=== PATIENT | female | born 1990 | race Caucasian/White ===

== ENCOUNTER → 2016-10-22 | Outpatient (CLI) | payer BC ==
[~2016-10-22] MED LIST: BCPILLS PO; LRT5 PO
== END | disposition home or self-care (01) ==
LOC: C.PAPS 16:24
PROVIDERS: ATTEND Obstetrics & Gynecology
DX: Z01.419 Encounter for gynecological examination (general) (routine) without abnormal findings (principal)

== ENCOUNTER → 2017-04-20 | Outpatient (CLI) | payer BC ==
[2017-04-20 12:46] LABS: BASO % 0.1 %; BASO ABS # 0.01 K/uL (0-0.2); COMPLETE YES; EOS % 0.6 %; HEMATOCRIT 39.6 % (37-47); IG% 0.6 %; LYMPH % 15.6 %; LYMPH ABS # 1.65 K/uL (1.2-3.4); MEAN CELL VOLUME 91.9 fL (80-100); MEAN CORPUSCULAR HEMOGLOBIN 32.5 pg (25-34); MEAN CORPUSCULAR HGB CONC 35.4 g/dl (32-36); MEAN PLATELET VOLUME 10.8 fL (7.4-10.4); MONO % 6.2 %; NEUT % 76.9 %; PLATELET COUNT 171 K/uL (130-400); RED BLOOD COUNT 4.31 M/uL (4.2-5.4); WHITE BLOOD COUNT 10.59 K/uL (4.8-10.8)
[2017-04-20 14:11] LABS: URINE APPEARANCE CLEAR (CLEAR); URINE BILIRUBIN NEG (NEG); URINE COLOR YELLOW; URINE NITRITE NEG (NEG); URINE PH 7.5 (4.5-7.5); URINE SPECIFIC GRAVITY 1.007 (1.000-1.030); UROBILINOGEN NEG (NEG)
[2017-04-20 14:18] LABS: MANUAL MICROSCOPIC REQUIRED? NO; REVIEW REQ? NO
[2017-04-23 01:02] LABS: CHLAMYDIA TRACH RNA*** NOT DETECTED (NOT DETECTED); GC (NEIS GONORRHOEAE)RNA** NOT DETECTED (NOT DETECTED)
== END | disposition home or self-care (01) ==
LOC: C.LAB1850 11:18
PROVIDERS: ATTEND Obstetrics & Gynecology
DX: Z34.01 Encounter for supervision of normal first pregnancy, first trimester (principal)

== ENCOUNTER → 2017-05-27 | Outpatient (CLI) | payer BC ==
[2017-05-27 15:09] LABS: GTGD 50 Grams
[2017-06-01 15:59] LABS: AFP CONCENTRATION 25.4 NG/ML; AFPTS GESTATIONAL AGE 16.3 WEEKS; AFPTS INSULIN DEP DIABETIC? NO; AFPTS MATERNAL WT 164 LBS; ALPHA-FETOPROTEIN RACE CAUCASIAN=W; ESTRIOL MULTIPLE OF MEDIAN 0.79; HISTORY OF NTD NO; INHIBIN A 124 PG/ML; INHIBIN A MOM 0.77; REPEAT SAMPLE? NO; hCG MULTIPLE OF MEDIAN 1.28
== END | disposition home or self-care (01) ==
LOC: C.LAB1850 11:50
PROVIDERS: ATTEND Obstetrics & Gynecology
DX: Z34.02 Encounter for supervision of normal first pregnancy, second trimester (principal)

== ENCOUNTER → 2017-08-18 | Outpatient (CLI) | payer BC ==
[2017-08-18 11:59] LABS: GTGD 50 Grams
[2017-08-18 12:29] LABS: HEMATOCRIT 36.6 % (37-47)
== END | disposition home or self-care (01) ==
LOC: C.LAB1850 10:17
PROVIDERS: ATTEND Obstetrics & Gynecology
DX: Z34.03 Encounter for supervision of normal first pregnancy, third trimester (principal)

== ENCOUNTER → 2017-09-01 | Outpatient (CLI) | payer BC ==
[~2017-09-01] MED LIST changes: +PRENTAB26 PO
== END | disposition home or self-care (01) ==
LOC: C.LAB1850 07:50
PROVIDERS: ATTEND Obstetrics & Gynecology
DX: Z34.03 Encounter for supervision of normal first pregnancy, third trimester (principal); O99.810 Abnormal glucose complicating pregnancy

== ENCOUNTER 2017-09-09 10:24 | Emergency (ER) | payer BC ==
[~2017-09-09] VITALS: Ht 167.6 cm; Wt 83.0 kg
[~2017-09-09 10:24] MED LIST changes: -PRENTAB26 PO
[2017-09-09 10:29] VITALS: TEMP 36.5; Ht 167.6 cm; Wt 83.0 kg
[2017-09-09] MEDS ORDERED: SODIUM CHLORIDE 0.9% 1000ML 1,000 ML IV STA (10:39)
--- NOTE | 2017-09-09 10:49 | EMERGENCY ROOM VISIT NOTE ---
History Report prepared by Parisa: Mendoza Samaniego Under the Supervision of: Dr. Jayden Sargent M.D. First contact with patient: 10:32 Chief Complaint: DIZZY Stated Complaint: DIZZINESS,SYNCOPE Nursing Triage Summary: pt has been feeling dizzy and has passed out twice, last time was this am no complaints of pain History of Present Illness The patient is a 27 year old female who presents to the Emergency Room with complaints of 2 episodes of dizziness that began about 11 days ago. She is currently 31 weeks with her first child. She received confirmatory US procedures of the baby without complications or abnormalities. She denies any other known medical history and does not take medications aside from a vitamin. About a week and a half ago, the patient had an episode of dizziness and lightheadedness in the morning. She lost consciousness and did not hit her head or experience any weakness/numbness. She awoke feeling mildly short of breath. She then tried to eat breakfast and noted that her symptoms improved. Over that week, she was asymptomatic until this morning. She had a similar episode to that time without head trauma. The only difference between the two episodes is that today she is experiencing some chills. She denies any fevers, neck pain, chest pain, abdominal pain, back pain, abnormal vaginal bleeding, abnormal vaginal discharge, or leg swelling. 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 Source of History: patient Onset: 11 days ago Position: other (global) Symptom Intensity: 2 episodes Quality: other (Dizziness) Timing: intermittent Associated Symptoms: + LOC, + chills, No fevers, No headache, No neck pain, No chest pain, No SOB, No abdominal pain, No back pain, No weakness, No numbness Note: She denies any leg swelling, abnormal vaginal bleeding, or abnormal vaginal discharge. She was experiencing lightheadedness. Review of Systems See HPI for pertinent positives & negatives. A total of 10 systems reviewed and were otherwise negative. Family History Heart disease Hypertension Social History Smoking Status: Never Smoker Smokeless Tobacco Use: No Alcohol Use: none Drug Use: none Marital Status: Housing Status: lives with significant other Occupation Status: employed Current/Historical Medications Scheduled Multivit/Min/Iron/Fol Ac/Pren ( Vitamin), 1 TAB PO DAILY Allergies Coded Allergies: BEE STING (Unverified Allergy, Unknown, SWELLING, 09/09/17) Physical Exam Vital Signs Date Time Temp Pulse Resp B/P (MAP) Pulse Ox O2 Delivery O2 Flow Rate FiO2 09/09/17 13:52 82 16 110/69 99 Room Air 09/09/17 13:42 90 09/09/17 11:53 72 16 101/72 100 Room Air 09/09/17 11:49 98 16 98/70 98 Room Air 09/09/17 11:19 108 16 98/70 98 Room Air 103 109/78 113 114/70 09/09/17 11:18 98 Room Air 09/09/17 11:03 97 Room Air 09/09/17 11:02 102 09/09/17 10:29 36.5 101 18 108/75 99 Physical Exam GENERAL: Patient is a healthy-appearing well-nourished female HEAD: Normocephalic atraumatic EYES: Ocular movements intact pupils equal and react to light OROPHARYNX mucous membranes are moist no exudates present no erythema or edema present NECK: Supple no nuchal rigidity CHEST: Good equal expansion LUNGS: Clear and equal to auscultation CARDIAC: Normal S1 and S2 ABDOMEN: Soft nontender, gravid, no guarding BACK: No CVA tenderness EXTREMITIES: No pain upon palpation normal muscle strength in all groups no clubbing cyanosis or edema NEURO: Patient is following commands and answering questions appropriately. Alert and oriented x3 Cranial Nerves 2-12 grossly intact Medical Decision & Procedures ER Provider Diagnostic Interpretation: Radiology results as stated below per my review and radiologist interpretation: LIMITED (US) CLINICAL HISTORY: Pt c/o dizziness COMPARISON STUDY: Outside hospital ultrasound 07/28/2017. FINDINGS: A anatomic survey was not performed for this study. Transabdominal scanning of the fetus. heart rate was between 133 and 144 bpm. The cervix is not clearly identified due to the artifact from the head. The fetus is in a cephalic presentation. There is an anterior/fundal placenta. No evidence for subchorionic hematoma. Amniotic fluid index is 15.5 cm. Femur length is 5.9 cm consistent with a 31 week and 0 day intrauterine gestation. IMPRESSION: 1. A single viable 31 week and 0 day intrauterine gestation. 2. Normal amniotic fluid index. 3. Anterior/fundal placenta. No evidence for subchorionic hematoma. 4. The cervix was not well visualized due to artifact from the head. Electronically signed by: Cipriano Lockwood M.D. 09/09/2017 1:14 PM Dictated Date/Time: 09/09/2017 1:10 PM Laboratory Results 09/09/17 11:10 Red Blood Count 3.83, Mean Corpuscular Volume 95.0, Mean Corpuscular Hemoglobin 32.6, Mean Corpuscular Hemoglobin Concent 34.3, Mean Platelet Volume 10.5, Neutrophils (%) (Auto) 85.8, Lymphocytes (%) (Auto) 7.2, Monocytes (%) (Auto) 5.3, Eosinophils (%) (Auto) 0.4, Basophils (%) (Auto) 0.1, Neutrophils # (Auto) 11.41, Lymphocytes # (Auto) 0.95, Monocytes # (Auto) 0.70, Eosinophils # (Auto) 0.05, Basophils # (Auto) 0.01 09/09/17 11:10 Test 09/09/17 11:10 09/09/17 11:26 09/09/17 12:30 White Blood Count 13.28 K/uL (4.8-10.8) Red Blood Count 3.83 M/uL (4.2-5.4) Hemoglobin 12.5 g/dL (12.0-16.0) Hematocrit 36.4 % (37-47) Mean Corpuscular Volume 95.0 fL (80-100) Mean Corpuscular Hemoglobin 32.6 pg (25-34) Mean Corpuscular Hemoglobin Concent 34.3 g/dl (32-36) Platelet Count 177 K/uL (130-400) Mean Platelet Volume 10.5 fL (7.4-10.4) Neutrophils (%) (Auto) 85.8 % Lymphocytes (%) (Auto) 7.2 % Monocytes (%) (Auto) 5.3 % Eosinophils (%) (Auto) 0.4 % Basophils (%) (Auto) 0.1 % Neutrophils # (Auto) 11.41 K/uL (1.4-6.5) Lymphocytes # (Auto) 0.95 K/uL (1.2-3.4) Monocytes # (Auto) 0.70 K/uL (0.11-0.59) Eosinophils # (Auto) 0.05 K/uL (0-0.5) Basophils # (Auto) 0.01 K/uL (0-0.2) RDW Standard Deviation 44.2 fL (36.4-46.3) RDW Coefficient of Variation 12.8 % (11.5-14.5) Immature Granulocyte % (Auto) 1.2 % Immature Granulocyte # (Auto) 0.16 K/uL (0.00-0.02) Anion Gap 8.0 mmol/L (3-11) Est Creatinine Clear Calc Drug Dose 163.8 ml/min Estimated GFR () 146.9 Estimated GFR (Non- 126.8 BUN/Creatinine Ratio 15.0 (10-20) Calcium Level 8.1 mg/dl (8.5-10.1) Total Bilirubin 0.2 mg/dl (0.2-1) Direct Bilirubin < 0.1 mg/dl (0-0.2) Aspartate Amino Transf (AST/SGOT) 14 U/L (15-37) Alanine Aminotransferase (ALT/SGPT) 16 U/L (12-78) Alkaline Phosphatase 102 U/L (45-117) Total Creatine Kinase 67 U/L (26-192) Creatine Kinase MB 0.9 ng/ml (0.5-3.6) Creatine Kinase MB Ratio 1.3 (0-3.0) Troponin I < 0.015 ng/ml (0-0.045) Total Protein 6.6 gm/dl (6.4-8.2) Albumin 2.6 gm/dl (3.4-5.0) Thyroid Stimulating Hormone (TSH) 1.710 uIu/ml (0.300-4.500) Bedside Glucose 101 mg/dl (70-90) Urine Color YELLOW Urine Appearance CLEAR (CLEAR) Urine pH 7.0 (4.5-7.5) Urine Specific [place] 1.015 (1.000-1.030) Urine Protein NEG (NEG) Urine Glucose (UA) NEG (NEG) Urine Ketones NEG (NEG) Urine Occult Blood NEG (NEG) Urine Nitrite NEG (NEG) Urine Bilirubin NEG (NEG) Urine Urobilinogen NEG (NEG) Urine Leukocyte Esterase SMALL (NEG) Urine WBC (Auto) 1-5 /hpf (0-5) Urine RBC (Auto) 0-4 /hpf (0-4) Urine Hyaline Casts (Auto) 1-5 /lpf (0-5) Urine Epithelial Cells (Auto) >30 /lpf (0-5) Urine Bacteria (Auto) NEG (NEG) Urine Renal Epithelial Cells /lpf (0-5) Labs reviewed by ED physician. Medications Administered Medications (Trade) Dose Ordered Sig/Ezra Route Start Time Stop Time Status Last Admin Dose Admin Sodium Chloride 1,000 ml @ 999 mls/hr Q1H1M STAT IV 09/09/17 10:39 09/09/17 11:39 DC 09/09/17 10:39 999 MLS/HR ECG Indication: syncope Rate (beats per minute): 97 Rhythm: normal sinus Findings: no acute ischemic change, no ectopy ED Course 1032: Past medical records reviewed. The patient was evaluated in room B2. A complete history and physical examination was performed. 1039: Ordered Sodium Chloride 1000 ml @ 999 mls/hr IV 1426: Upon reexamination the patient is resting. I discussed results and treatment plan with the patient. She verbalizes agreement and understanding. The patient is ready for discharge. Medical Decision Differential diagnosis: Etiologies such as vasovagal event, infection, hypoglycemia, electrolyte abnormalities, cardiac sources, intracerebral event, toxicologic, neurologic, as well as others were entertained. This is a 27 year old female who presents emergency department complaining of dizziness. Every time the patient stands up she feels she is dizzy. She is hypotensive upon arrival to the emergency department however does not appear to be septic. In addition the patient is afebrile. An IV was established, patient was given normal saline bolus. Repeat examination revealed improvement patient's symptoms. I strongly recommended that the patient return to the emergency department if she develops chest pain or shortness of breath however at this point the patient would like to be discharged. I encouraged her to increase her fluid intake over the next 48 hours. Patient was in agreement with the treatment plan. Medication Reconcilliation Current Medication List: was personally reviewed by me Blood Pressure Screening Patient's blood pressure: Normal blood pressure Blood pressure disposition: Did not require urgent referral Impression Primary Impression: Additional Impression: Dehydration Scribe Attestation The scribe's documentation has been prepared under my direction and personally reviewed by me in its entirety. I confirm that the note above accurately reflects all work, treatment, procedures, and medical decision making performed by me. Departure Information Dispostion Home / Self-Care Referrals No Doctor, Assigned (PCP) Forms HOME CARE DOCUMENTATION FORM, IMPORTANT VISIT INFORMATION, School Instructions, Work Instructions Patient Instructions ED Dehydration, My [facility] Additional Instructions Increase fluid intake next 48 hours You have been examined and treated today on an emergency basis only. This is not a substitute for, or an effort to provide, complete comprehensive medical care. It is impossible to recognize and treat all injuries or illnesses in a single emergency department visit. It is therefore important that you follow up closely with your PCP. Call as soon as possible for an appointment. Thank you for your time and consideration. I look forward to speaking with you again soon. Please don't hesitate to call us if you have any questions. Problem Qualifiers Primary Impression: Weeks of gestation: 31 weeks Qualified Codes: Z3A.31 - 31 weeks gestation of
[2017-09-09 11:18] VITALS: O2SAT 98
[2017-09-09] MEDS ORDERED: PRENTAB26 PO (11:20)
[2017-09-09 11:27] LABS: BASO % 0.1 %; BASO ABS # 0.01 K/uL (0-0.2); EOS % 0.4 %; EOS ABS # 0.05 K/uL (0-0.5); HEMATOCRIT 36.4 % (37-47); HEMOGLOBIN 12.5 g/dL (12.0-16.0); IG# 0.16 K/uL (0.00-0.02); LYMPH % 7.2 %; LYMPH ABS # 0.95 K/uL (1.2-3.4); MEAN CORPUSCULAR HEMOGLOBIN 32.6 pg (25-34); MEAN CORPUSCULAR HGB CONC 34.3 g/dl (32-36); MEAN PLATELET VOLUME 10.5 fL (7.4-10.4); MONO % 5.3 %; NEUT % 85.8 %; NEUT ABS # 11.41 K/uL (1.4-6.5); PLATELET COUNT 177 K/uL (130-400); RED CELL DISTRIBUTION WIDTH CV 12.8 % (11.5-14.5); RED CELL DISTRIBUTION WIDTH SD 44.2 fL (36.4-46.3); WHITE BLOOD COUNT 13.28 K/uL (4.8-10.8)
[2017-09-09 11:39] LABS: ALBUMIN 2.6 gm/dl (3.4-5.0); ALT/SGPT 16 U/L (12-78); BLOOD UREA NITROGEN 8 mg/dl (7-18); CALCIUM 8.1 mg/dl (8.5-10.1); CARBON DIOXIDE 24 mmol/L (21-32); CREATININE 0.55 mg/dl (0.60-1.20); GLUCOSE 95 mg/dl (70-99); POTASSIUM 3.7 mmol/L (3.5-5.1); SODIUM 136 mmol/L (136-145)
[2017-09-09 11:50] LABS: ALKALINE PHOSPHATASE 102 U/L (45-117); AST/SGOT 14 U/L (15-37); CKMB 0.9 ng/ml (0.5-3.6); TOTAL PROTEIN 6.6 gm/dl (6.4-8.2)
--- NOTE | 2017-09-09 13:16 | DIAGNOSTIC IMAGING REPORT ---
LIMITED (US) CLINICAL HISTORY: Pt c/o dizziness COMPARISON STUDY: Outside hospital ultrasound 07/28/2017. FINDINGS: A anatomic survey was not performed for this study. Transabdominal scanning of the fetus. heart rate was between 133 and 144 bpm. The cervix is not clearly identified due to the artifact from the head. The fetus is in a cephalic presentation. There is an anterior/fundal placenta. No evidence for subchorionic hematoma. Amniotic fluid index is 15.5 cm. Femur length is 5.9 cm consistent with a 31 week and 0 day intrauterine gestation. IMPRESSION: 1. A single viable 31 week and 0 day intrauterine gestation. 2. Normal amniotic fluid index. 3. Anterior/fundal placenta. No evidence for subchorionic hematoma. 4. The cervix was not well visualized due to artifact from the head. Electronically signed by: Cipriano Lockwood M.D. 09/09/2017 1:14 PM Dictated Date/Time: 09/09/2017 1:10 PM
[2017-09-09 13:52] VITALS: BP 110/69; PULSE 82; O2SAT 99
== END 2017-09-09 14:20 | disposition home or self-care (01) ==
LOC: C.EDB 10:27
DX: O99.283 Endocrine, nutritional and metabolic diseases complicating pregnancy, third trimester (principal); O10.913 Unspecified pre-existing hypertension complicating pregnancy, third trimester; Z3A.31 31 weeks gestation of pregnancy; R03.1 Nonspecific low blood-pressure reading

== ENCOUNTER → 2017-10-14 | Outpatient (CLI) | payer BC ==
[~2017-10-14] MED LIST changes: -BCPILLS PO; -LRT5 PO; +PRENTAB26 PO
== END ==
LOC: C.LABSPEC 13:05
PROVIDERS: ATTEND Obstetrics & Gynecology
DX: Z34.03 Encounter for supervision of normal first pregnancy, third trimester (principal)

== ENCOUNTER 2017-11-10 04:07 | Inpatient (IN) | payer BC ==
[~2017-11-10] VITALS: Ht 167.6 cm; Wt 90.0 kg
[2017-11-10 04:36] VITALS: Ht 167.6 cm; Wt 90.0 kg
[2017-11-10] MEDS ORDERED: LACTATED RINGER'S 1000ML 1,000 ML IV PRN (05:13)
[2017-11-10] MEDS ORDERED: LACTATED RINGER'S 1000ML 1,000 ML IV SCH ×2 (05:13→12:25)
[2017-11-10 05:52] LABS: HEMATOCRIT 36.6 % (37-47); MEAN CELL VOLUME 95.3 fL (80-100); MEAN CORPUSCULAR HEMOGLOBIN 33.9 pg (25-34); MEAN CORPUSCULAR HGB CONC 35.5 g/dl (32-36); MEAN PLATELET VOLUME 12.2 fL (7.4-10.4); PLATELET COUNT 148 K/uL (130-400); RED CELL DISTRIBUTION WIDTH CV 13.2 % (11.5-14.5); RED CELL DISTRIBUTION WIDTH SD 45.5 fL (36.4-46.3)
[2017-11-10] MEDS ORDERED: BUPIVACAINE 0.25% 30 ML VIAL ONE (07:03)
[2017-11-10] MEDS ORDERED: EpHEDrine SULFATE INJ 50 MG/ML AMP ONE (07:03)
[2017-11-10] MEDS ORDERED: FENTANYL CITRATE INJ 50 MCG/1 ML 2 ML VIAL ONE (07:03)
[2017-11-10] MEDS ORDERED: FENTANYL 2MCG/ML ROPIV 1.25MG/ML 100ML BAG EPI ONE (07:04)
[2017-11-10] MEDS ORDERED: NALOXONE HCL INJ 1 MG in SODIUM CHLORIDE 0.9% 1000ML 1,000 ML IV PRN (08:08)
[2017-11-10] MEDS ORDERED: LACTATED RINGER'S 1000ML 500 ML IV PRN ×2 (08:08→08:49)
[2017-11-10] MEDS ORDERED: FENTANYL 2MCG/ML ROPIV 1.25MG/ML 100ML BAG EPI PRN (08:15)
[2017-11-10] MEDS ORDERED: ONDANSETRON INJ 2 MG/ML 2 ML VIAL IV PRN (08:15)
[2017-11-10] MEDS ORDERED: EpHEDrine SULFATE INJ 50 MG/ML AMP IV PRN (08:15)
[2017-11-10] MEDS ORDERED: DiphenhydrAMINE HCL 50 MG/ML VIAL IV PRN (08:15)
[2017-11-10] MEDS ORDERED: NALBUPHINE HCL INJ 10 MG/ML AMP IV PRN (08:15)
[2017-11-10] MEDS ORDERED: NALOXONE HCL INJ 0.4 MG/1 ML VIAL/CARP IV PRN (08:15)
[2017-11-10] MEDS ORDERED: OXYTOCIN 30 UNITS/500ML NSS IV PRN ×2 (09:00→12:30)
[2017-11-10] MEDS ORDERED: HYDROCORTISONE ACETATE 25 MG SUPP PR PRN (12:30)
[2017-11-10] MEDS ORDERED: SUPERCREAM 0.870 % 15GM JAR EXT PRN (12:30)
[2017-11-10] MEDS ORDERED: BENZOCAINE 20% AER SPR 82.5 GM CAN EXT PRN (12:30)
[2017-11-10] MEDS ORDERED: OXYCODONE/ACETAMINOPHEN 5-325 TAB PO PRN (12:30)
[2017-11-10] MEDS ORDERED: DIPHTHERIA/TETANUS/PERTUSSIS 0.5 ML SYR/VIAL IM. ONE (12:30)
[2017-11-10] MEDS ORDERED: ACETAMINOPHEN 325 MG TAB PO PRN (12:30)
[2017-11-10] MEDS ORDERED: LANOLIN OINT EXT PRN (12:30)
--- NOTE | 2017-11-10 12:33 | Vaginal Delivery Summary ---
Vaginal Delivery Summary Preoperative Diagnoses: Stein intrauterine at 40 and 1 1 para 0 Group B strep negative Spontaneous rupture of membranes Postoperative Diagnoses: Stein intrauterine at 40 and 1 1 para 0 Group B strep negative Spontaneous rupture of membranes Procedure: Spontaneous vaginal delivery and repair of posterior vaginal laceration Surgeon: Shamar Assist: None Estimated Blood Loss: 350 Complications: None Disposition: Stable in labor and delivery Sierra Hanson is a 27-year-old who presented at 40 weeks gestational age with spontaneous rupture of membranes. She was admitted by my partner Dr. Angel and initially managed expectantly. She was provided with an epidural for pain management at the time I assumed care of the patient. She was reassessed and found to be unchanged, therefore Pitocin was started for augmentation with permission of the patient and her partner. Patient then progressed to complete dilation and was allowed to labor down until she felt the urge to push. I was called to the bedside as the patient began pushing. She was prepped for delivery and with her first few pushes was able to bring the head to ; she then delivered the head of the in the SHELIA position. A loose body cord was noted and the was delivered through this with the next push. Vigorous male was placed on the maternal abdomen where the cord was doubly clamped and cut by the father. The placenta was delivered spontaneously and noted to be intact with a three-vessel cord. A posterior vaginal repair then proceeded of a shallow laceration using 2-0 Vicryl suture in a running locked manner. There were no disruptions of the perineal or labial skin. Digital examination revealed no connections between the vaginal and rectal canals. At the completion of delivery, the fundus was firm lochia was minimal and mother and infant were both in stable condition.
--- NOTE | 2017-11-10 12:53 | Anesthesia Procedure Note ---
Anesthesia Epidural Removal Nt Date & Time Nov 10, 2017 at 12:52 Vital Signs Pain Intensity: 0.0 Notes Mental Status: alert / awake / arousable, participated in evaluation Nausea / Vomiting: adequately controlled Pain: adequately controlled Airway Patency, RR, SpO2: stable & adequate BP & HR: stable & adequate Hydration State: stable & adequate Neuraxial Anesthesia: was administered, sensory block is resolving Anesthetic Complications: no major complications apparent, pt satisfied with anesthetic care Epidural: removed without complications, with tip intact
[2017-11-10 16:30] VITALS: BP 106/71; PULSE 66; TEMP 37.3
[2017-11-10] MEDS: IBUPROFEN 600 MG TAB PO PRN ×2 (17:20→21:21)
[2017-11-10 19:30] VITALS: BP 109/75; PULSE 65; TEMP 37.1
[2017-11-10] MEDS: DOCUSATE SODIUM 100 MG CAP PO SCH (20:04)
[2017-11-11 00:30] VITALS: BP 96/65; PULSE 68; TEMP 37
[2017-11-11] MEDS: IBUPROFEN 600 MG TAB PO PRN ×4 (02:01→17:12)
[2017-11-11 04:45] VITALS: BP 91/62; PULSE 63; TEMP 36.9
[2017-11-11 06:33] LABS: HEMATOCRIT 31.6 % (37-47); HEMOGLOBIN 10.9 g/dL (12.0-16.0)
--- NOTE | 2017-11-11 06:58 | Progress Note ---
Subjective Nov 11, 2017. Subjective conversation w/ patient, physical exam Ambulation: ambulating normally Voiding: no voiding problems Passing Gas: Yes Diet Tolerance: Regular Diet Lochia: Moderate Feeding Type: Breast Feeding Pain: minimal, well controlled Comment: Pt seen and assessed at bedside this morning; no acute events overnight Review of Systems Constitutional: No fever, No chills Respiratory: No cough, No shortness of breath Cardiac: No chest pain, No edema Abdomen: No pain, No nausea, No vomiting Female : No dysuria no headaches or calf tenderness reported Objective Vital Signs Date Time Temp Pulse Resp B/P (MAP) Pulse Ox O2 Delivery O2 Flow Rate FiO2 11/11/17 04:45 36.9 63 16 91/62 (72) Room Air 11/11/17 00:30 37.0 68 18 96/65 (75) Room Air 11/11/17 00:30 Room Air 11/10/17 19:30 37.1 65 20 109/75 (86) Room Air 11/10/17 16:30 Room Air 11/10/17 16:30 37.3 66 20 106/71 (83) Room Air Physical Exam General Appearance: WELL-APPEARING, WD/WN, NO APPARENT DISTRESS Respiratory/Chest: chest non-tender, lungs clear, normal breath sounds Cardiovascular: regular rate, rhythm, no edema, no murmur Abdomen: normal bowel sounds, non tender, soft Fundus: Firm, Non-Tender, Relation to Umbilicus (1-2 cm below) Extremities: normal range of motion, non-tender, normal inspection, no pedal edema, no calf tenderness Laboratory Results Last 24 Hours Test 11/11/17 06:13 Hemoglobin 10.9 g/dL Hematocrit 31.6 % Medications Current Inpatient Medications Medications (Trade) Dose Ordered Sig/Ezra Route Start Time Stop Time Status Last Admin Dose Admin Lactated Ringer's 1,000 ml @ 125 mls/hr Q8H IV 11/10/17 05:13 11/12/17 05:12 11/10/17 08:02 125 MLS/HR Lactated Ringer's 1,000 ml @ 999 mls/hr Q1H1M PRN IV 11/10/17 05:13 12/10/17 05:12 11/10/17 07:09 999 MLS/HR Fentanyl/ Ropivacaine (Fentanyl 2MCG/ Ml/Ropivacaine 1.25MG/ML) 100 ml PRN PRN EPI 11/10/17 08:15 11/11/17 08:14 Naloxone HCl (Narcan Inj) 0.1 mg UD PRN IV 11/10/17 08:15 11/11/17 08:14 Lactated Ringer's 500 ml @ 999 mls/hr Q31M PRN IV 11/10/17 08:08 11/11/17 08:07 Ephedrine Sulfate (EpHEDrine SULFATE INJ) 10 mg Q5M PRN IV 11/10/17 08:15 11/11/17 08:14 Diphenhydramine HCl (Benadryl Inj) 25 mg Q6H PRN IV 11/10/17 08:15 11/11/17 08:14 Nalbuphine HCl (Nubain Inj) 5 mg Q10M PRN IV 11/10/17 08:15 11/11/17 08:14 Naloxone HCl 1 mg/ Sodium Chloride 1,002.5 ml @ 50 mls/hr Q20H3M PRN IV 11/10/17 08:08 11/11/17 08:07 Ondansetron HCl (Zofran Inj) 4 mg Q6H PRN IV 11/10/17 08:15 11/11/17 08:14 Oxytocin (Pitocin IV) 30 units UD PRN IV 11/10/17 09:00 12/10/17 08:59 11/10/17 09:12 30 UNITS Lactated Ringer's 500 ml @ 999 mls/hr Q31M PRN IV 11/10/17 08:49 12/10/17 08:48 Lactated Ringer's 1,000 ml @ 125 mls/hr Q8H IV 11/10/17 12:25 12/10/17 12:24 Oxytocin (Pitocin IV) 30 units UD PRN IV 11/10/17 12:30 12/10/17 12:29 Benzocaine (Dermoplast Aero Spr) 1 appln PRN PRN EXT 11/10/17 12:30 12/10/17 12:29 11/10/17 17:20 82.5 APPLN Cocaine HCl (Supercream 0.870% Cr) BID PRN EXT 11/10/17 12:30 11/24/17 12:29 11/10/17 17:20 15 GM Hydrocortisone Acetate (Anusol Hc Supp) 25 mg BID PRN IN 11/10/17 12:30 12/10/17 12:29 Lanolin (Lanolin Oint) PRN PRN EXT 11/10/17 12:30 12/10/17 12:29 Prenat Multivit/ Registration Coordinator/Iron/Folic Ac ( Vitamin Tab) 1 tab DAILY PO 11/11/17 08:00 12/11/17 07:59 Ibuprofen (Motrin Tab) 600 mg Q4H PRN PO 11/10/17 12:30 12/10/17 12:29 11/11/17 02:01 600 MG Acetaminophen (Tylenol Tab) 650 mg Q6H PRN PO 11/10/17 12:30 12/10/17 12:29 Oxycodone/ Acetaminophen (Percocet 5-325mg Tab) 1 tab Q4H PRN PO 11/10/17 12:30 11/24/17 12:29 Docusate Sodium (coLACE CAP) 100 mg BID PO 11/10/17 20:00 12/10/17 19:59 11/10/17 20:04 100 MG Assessment and Plan Problem List Medical Problems: (1) Dehydration Status: Acute Post- Day#: 1 Continue Routine Care: 27 yo F , PPD 1 s/p pt doing well clinically continue routine care encourage ambulation, breast feeding/first mom education on breast feeding, pain control with rx prn Resident Tracking Resident Involvement: Resident Care Provided Care Provided: OB Delivery
--- NOTE | 2017-11-11 07:26 | Discharge Instructions ---
Discharge Instructions Date of Service Nov 11, 2017. Admission Reason for Admission: LABOR Discharge Discharge Diagnosis / Problem: s/p Discharge Goals Goal(s): Routine recovery after delivery Medications Continue Dispensed Medications: supercream, dermaplast, tucks, inhaler, lansinoh Activity Recommendations Activity Limitations: per Instructions/Follow-up section . Instructions / Follow-Up Instructions / Follow-Up ACTIVITY RECOMMENDATIONS: * Gradual return to full activity over the next 2-3 weeks. * No lifting - nothing heavier than baby over the next 2-3 weeks. * Do not engage in vigorous exercise, sexual activity or sports until cleared by your physician. * Do not drive or operate any motorized equipment until cleared by your physician. * You may shower/bathe daily. MEDICATIONS: For discomfort or pain, you may use Acetaminophen (Tylenol), Ibuprofen (Advil), or Naproxen (Aleve) following the package directions. For constipation you may use Colace following the package directions. BREAST CARE: If you are not breast feeding: * Wear a supportive bra 24 hours a day for one to two weeks. * Avoid stimulating your breasts and nipples as much as possible during the first few weeks after delivery. * When taking a shower, have the warm water hit your back, not breasts. * When your breasts feel full, apply ice packs. Usually three to four times a day helps ease the discomfort. * Take a mild pain medication (Tylenol / Motrin) when you are uncomfortable. If breast feeding: * Use breast milk to lubricate nipples. Lansinoh cream may be used for sore nipples. You do not need to remove cream prior to breast feeding. If using a different brand of cream, check the label for directions regarding removal of cream prior to nursing. * Wear a supportive bra. * If having problems with breasts or breast feeding, call a clinical practice consultant or your health care provider. EPISIOTOMY CARE: After delivery, if you have an episiotomy (stitches), the following steps will ease discomfort and aid healing. * For the first 24 hours after delivery, place ice packs next to your episiotomy to help reduce swelling. * After the first 24 hour-period, sitz baths, either portable or in the tub, are suggested. A shower with a shower arm sprayed over the episiotomy may be comforting. * Millie care should be done after each voiding and bowel movement. Squirt warm water from a plastic bottle over the perineum (region of the body between the anus and urinary opening) and pat dry. * Use Dermoplast to ease discomfort. Shake container. [place] directly over the episiotomy. Place a Tucks on a clean sanitary pad next to your episiotomy. SPECIAL CARE INSTRUCTIONS: When you are discharged from the hospital, it is important for you to follow the instructions listed below: * During the first week at home, you should be able to care for yourself and your baby. In addition, the usual light household activities are encouraged. * Limit your activities to the way you feel. Do not try to clean the house or move furniture. Be sensible. * If you actively engage in sports and have done so up until the time of your delivery, you may resume these activities as soon as you feel able. This may take up to one month or even longer. Use good judgment. * Continue to take your vitamins for at least six weeks after the of your baby. * Your diet need not be limited unless you were on a special diet before your delivery. Breast-feeding mothers need around 2500 calories per day and at least 64-80 ounces of fluid per day (8 to 10 glasses). * You should eat foods from the four major food groups. Crash diets or fad diets are to be avoided. Eating lean meats, fresh fruits and vegetables, low-fat dairy products, high fiber foods and a regular exercise program, will help you get back to your pre- weight without putting your health at risk. * Constipation is sometimes a problem after delivery. Take a mild laxative as needed. If breast feeding, Milk of Magnesia is acceptable to use. You may use a suppository or Fleets enema if no episiotomy. * A daily shower or tub bath is suggested. Be sure to thoroughly and gently dry the perineum. * A bloody vaginal discharge will usually continue until around four weeks post . A small amount of bleeding may continue for as long as six weeks. Vaginal discharge changes from the bright red bleeding after delivery to pink then brownish and finally yellowish-pink before becoming white and disappearing. * Bleeding may increase with activity. Your first period may come in 4-8 weeks. If you are breast feeding, your period may be delayed even longer. * [place] (sex) can begin whenever both you and your partner feel comfortable and do not have any form of genital infection. It is recommended that you wait at least six weeks for internal and external healing to occur. If you have questions, please talk to your health care practitioner. A condom should be used to prevent infection and . * Foreplay, gentle intercourse and lubrication is very important the first several times to prevent pain. A water-based lubricant such as K-Y jelly or Astroglide may be used. * If you have RH negative blood and your baby is RH positive, you will receive RHOGAM by injection prior to discharge. The nurse will give you a card to keep with you that has the date and place that you received RHOGAM after delivery. * During your care, you had a Rubella screen done to check for the presence of rubella antibodies in your blood. If your test was negative, you will receive a Rubella vaccine prior to discharge. This vaccine may cause a fever, soreness at the injection site and flu-like symptoms. If these symptoms persist, notify your health care practitioner. is not advised for one month after a Rubella vaccine. * Verbalizes understanding of car seat law as reviewed with patient nursing. * Car Seat hand-out given and reviewed with patient by nursing. * Shaken baby information reviewed with patient by nursing. Call you doctor if: * Heavy bleeding (saturating several pads an hour) or passing clots the size of your fist. * A fever >101 degrees F (38.3 degrees C) on two occasions four hours apart and /or chills. * Unusual pain in the pelvic or vaginal areas. * "Baby Blues" lasting longer than two weeks. If you have any questions or concerns, call your health care practitioner at . FOLLOW UP VISIT: * Please call the office at to schedule a 6 week examination. It is important you keep this appointment. It is important for you to make arrangements for either yearly or twice yearly check-ups thereafter. Current Hospital Diet Patient's current hospital diet: Regular OB Diet Discharge Diet Recommended Diet: Regular OB Diet Pending Studies Studies pending at discharge: no Medical Emergencies . Who to Call and When: Medical Emergencies: If at any time you feel your situation is an emergency, please call 911 immediately. . Non-Emergent Contact Non-Emergency issues call your: Enrobing Machine Operator . . "Provider Documentation" section prepared by Lian Horton. .
[2017-11-11 07:57] VITALS: BP 106/69; PULSE 62; TEMP 37
[2017-11-11] MEDS: DOCUSATE SODIUM 100 MG CAP PO SCH ×2 (08:37→20:34)
[2017-11-11] MEDS: PRENATAL VITAMIN TAB PO SCH (08:37)
[2017-11-11 16:30] VITALS: BP 105/70; PULSE 64; TEMP 36.8; O2SAT 97
[2017-11-12 00:05] VITALS: BP 110/73; PULSE 60; TEMP 36.6
[2017-11-12] MEDS: IBUPROFEN 600 MG TAB PO PRN ×3 (00:07→12:29)
--- NOTE | 2017-11-12 06:56 | Progress Note ---
Subjective Nov 12, 2017. Subjective conversation w/ patient, physical exam Ambulation: ambulating normally Voiding: no voiding problems Passing Gas: Yes Diet Tolerance: Regular Diet Lochia: Small Feeding Type: Breast Feeding Pain: minimal, well controlled Comment: pt seen and assessed at bedside; no acute events overnight Review of Systems Constitutional: No fever, No chills Respiratory: No cough, No shortness of breath Cardiac: + edema, No chest pain Abdomen: No nausea, No vomiting Female : No dysuria no headaches or calf pain reported Objective Vital Signs Date Time Temp Pulse Resp B/P (MAP) Pulse Ox O2 Delivery O2 Flow Rate FiO2 11/12/17 00:05 36.6 60 18 110/73 (85) Room Air 11/12/17 00:05 Room Air 11/11/17 16:30 Room Air 11/11/17 16:30 36.8 64 16 105/70 (82) 97 Room Air 11/11/17 07:57 37.0 62 16 106/69 (81) Room Air 11/11/17 07:15 Room Air Physical Exam General Appearance: WELL-APPEARING, WD/WN, NO APPARENT DISTRESS Respiratory/Chest: chest non-tender, lungs clear, normal breath sounds Cardiovascular: regular rate, rhythm, no murmur Abdomen: normal bowel sounds, non tender, soft Fundus: Firm, Non-Tender, Relation to Umbilicus (3 cm below) Extremities: normal range of motion, non-tender, normal inspection, no calf tenderness, + pedal edema (1+bilaterally) Laboratory Results Last Resulted 11/10/17 05:24 11/11/17 06:13 Medications Current Inpatient Medications Medications (Trade) Dose Ordered Sig/Ezra Route Start Time Stop Time Status Last Admin Dose Admin Lactated Ringer's 1,000 ml @ 999 mls/hr Q1H1M PRN IV 11/10/17 05:13 12/10/17 05:12 11/10/17 07:09 999 MLS/HR Oxytocin (Pitocin IV) 30 units UD PRN IV 11/10/17 09:00 12/10/17 08:59 11/10/17 09:12 30 UNITS Lactated Ringer's 500 ml @ 999 mls/hr Q31M PRN IV 11/10/17 08:49 12/10/17 08:48 Lactated Ringer's 1,000 ml @ 125 mls/hr Q8H IV 11/10/17 12:25 12/10/17 12:24 Oxytocin (Pitocin IV) 30 units UD PRN IV 11/10/17 12:30 12/10/17 12:29 Benzocaine (Dermoplast Aero Spr) 1 appln PRN PRN EXT 11/10/17 12:30 12/10/17 12:29 11/10/17 17:20 82.5 APPLN Cocaine HCl (Supercream 0.870% Cr) BID PRN EXT 11/10/17 12:30 11/24/17 12:29 11/10/17 17:20 15 GM Hydrocortisone Acetate (Anusol Hc Supp) 25 mg BID PRN TN 11/10/17 12:30 12/10/17 12:29 Lanolin (Lanolin Oint) PRN PRN EXT 11/10/17 12:30 12/10/17 12:29 Prenat Multivit/ [place]/Iron/Folic Ac ( Vitamin Tab) 1 tab DAILY PO 11/11/17 08:00 12/11/17 07:59 11/11/17 08:37 1 TAB Ibuprofen (Motrin Tab) 600 mg Q4H PRN PO 11/10/17 12:30 12/10/17 12:29 11/12/17 00:07 600 MG Acetaminophen (Tylenol Tab) 650 mg Q6H PRN PO 11/10/17 12:30 12/10/17 12:29 Oxycodone/ Acetaminophen (Percocet 5-325mg Tab) 1 tab Q4H PRN PO 11/10/17 12:30 11/24/17 12:29 Docusate Sodium (coLACE CAP) 100 mg BID PO 11/10/17 20:00 12/10/17 19:59 11/11/17 20:34 100 MG Assessment and Plan Problem List Medical Problems: (1) Dehydration Status: Acute Post- Day#: 2 Continue Routine Care: Resident Physician Supervision Note: I was present with [Name of resident] during the history and exam. I discussed the case with the resident and agree with the findings and plan as documented in the note. Any exceptions or clarifications are listed here: [None ] Documented By: Lary Doan 27yo F PPD 2 s/p NVD Pt doing well clinically Continue routine care Encourage ambulation, beast feeding Pain control with rx prn Resident Tracking Resident Involvement: Resident Care Provided Care Provided: OB Delivery
[2017-11-12] MEDS: DOCUSATE SODIUM 100 MG CAP PO SCH (08:13)
[2017-11-12] MEDS: PRENATAL VITAMIN TAB PO SCH (08:13)
[2017-11-12 08:28] VITALS: BP 111/76; PULSE 70; TEMP 36.4; O2SAT 97
[2017-11-12 09:25] VITALS: O2SAT 97
[2017-11-12 21:11] VITALS: BP_DIAS 76; PULSE 70; TEMP 36.4
== END 2017-11-12 14:35 | disposition home or self-care (01) | DRG 775 ==
LOC: C.LD 04:07 → C.OPB 04:07 → C.LD 05:15 → C.OBG 16:33
PROVIDERS: ADMIT Obstetrics & Gynecology; ATTEND Obstetrics & Gynecology
PROC: 10E0XZZ Delivery of Products of Conception, External Approach (ICD-10-PCS; principal; 2017-11-10)
PROC: 0UQG7ZZ Repair Vagina, Via Natural or Artificial Opening (ICD-10-PCS; principal; 2017-11-10)
DX: O48.0 Post-term pregnancy (principal); O71.4 Obstetric high vaginal laceration alone; O69.82X0 Labor and delivery complicated by other cord entanglement, without compression, not applicable or unspecified; Z3A.40 40 weeks gestation of pregnancy; Z37.0 Single live birth; Z91.030 Bee allergy status

== ENCOUNTER 2019-08-15 19:27 | Inpatient (IN) ==
[2019-08-15] MEDS ORDERED: OXYTOCIN 30 UNITS/500 ML BAG IV PRN ×2 (19:59→20:34)
[2019-08-15] MEDS ORDERED: LACTATED RINGER'S 1,000 ML IV PRN (19:59)
[2019-08-15] MEDS ORDERED: fentaNYL citrate 100 MCG/2 ML VIAL ONE (20:02)
[2019-08-15] MEDS ORDERED: ePHEDrine sulfate 50 MG/ML AMP ONE (20:02)
[2019-08-15] MEDS ORDERED: BUPIVACAINE 0.25% 30 ML VIAL ONE (20:03)
[2019-08-15] MEDS ORDERED: fentaNYL 2MCG/ML ROPIV 1.25MG/ML 100 ML BAG EPI ONE (20:03)
[2019-08-15] MEDS ORDERED: OXYCODONE/ACETAMINOPHEN 5mg/325mg TAB PO PRN (20:34)
[2019-08-15] MEDS ORDERED: ACETAMINOPHEN 325 MG TAB PO PRN (20:34)
--- NOTE | 2019-08-15 20:35 | Delivery Summary ---
Vaginal Delivery Summary Date of Service August 15, 2019 29yo at 39+wks josseline presented to L&D in labor, bulging membranes and 8cm. Her water then broke and she was completely dilated and over 2-3 pushes delivered viable male apgars 8,9 via over 2nd degree perineal laceration. Mouth and nose bulb suctioned at perineum and shoulders and body delivered with ease. Infant vigorous and cried at . Placenta delivered spontaneously and intact, 3 VC. Hemostasis achieved with dilute pitocin and uterine massage. Cervix and sulci intact. 1% lidocaine anesthesia injected and laceration repaired in usual fashion with 3-0 vicryl. EBL 300cc. Mother and baby stable in recovery. Patients course was uncomplicated. RH positive blood type, GBS negative. No significant medical history and wisdom teeth extraction was only surgery. Routine care.
[2019-08-15] MEDS ORDERED: HYDROCORTISONE ACETATE 25 MG SUPP PR PRN (20:40)
[2019-08-15] MEDS ORDERED: DIPHTHERIA/TETANUS/PERTUSSIS 0.5 ML SYR/VIAL IM ONE (20:40)
[2019-08-15] MEDS ORDERED: SUPERCREAM 0.870% 15 GM JAR EXT PRN (20:40)
[2019-08-15] MEDS ORDERED: BENZOCAINE 20% AER SPR 82.5 GM CAN EXT PRN (20:40)
[2019-08-15] MEDS ORDERED: OXYTOCIN 20 UNITS in LACTATED RINGER'S 1,000 ML IV SCH (20:45)
[2019-08-15] MEDS: IBUPROFEN 600 MG TAB PO PRN (21:04)
[2019-08-15 21:30] LABS: Hematocrit (blood only) 38.4 % (37-47); Hemoglobin 13.1 g/dL (12.0-16.0); Mean Corpuscular Volume 96.7 fL (80-100); Mean Platelet Volume 11.4 fL (7.4-10.4); Platelet Count 162 K/uL (130-400); RDW Coefficient of Variation 13.3 % (11.5-14.5); RDW Standard Deviation 45.8 fL (36.4-46.3); Red Blood Count 3.97 M/uL (4.2-5.4); White Blood Count 15.89 K/uL (4.8-10.8)
[2019-08-15 21:32] LABS: Mean Corpuscular Hgb Conc 34.1 g/dL (32-36)
[2019-08-15] MEDS: DOCUSATE SODIUM 100 MG CAP PO SCH (22:44)
[2019-08-16] MEDS: IBUPROFEN 600 MG TAB PO PRN ×4 (02:43→20:34)
[2019-08-16] MEDS: DOCUSATE SODIUM 100 MG CAP PO SCH ×2 (07:27→20:32)
--- NOTE | 2019-08-16 07:29 | Obstetrical Progress Note ---
Date of Service August 16, 2019 Assessment & Plan (1) Normal delivery at term: stable, routine care. Day #:: 1 Subjective Ambulation: ambulating normally Voiding: no voiding problems Diet Tolerance:: regular diet Lochia:: Small Feeding Type:: breast feeding doing well. Physical Exam Constitutional WD/WN, vitals as above Respiratory normal respiratory effort, lungs clear to auscultation Cardiovascular Rate/Rhythm: regular rate and regular rhythm Gastrointestinal (Abdomen) Inspection/Auscultation: abdomen normal to inspection Percussion/Palpation: abdomen soft Fundus firm 2cm down Musculoskeletal nt calves no edema Neurologic grossly normal Psychiatric A+Ox3, euthymic affect Results & Data Vital Signs (Past 12 Hours) Vital Signs Temp Pulse Pulse Resp BP BP 08/16/19 03:00 98.2 F 62 20 106/70 08/15/19 23:20 99.0 F 60 18 110/72 08/15/19 22:30 97.5 F L 68 20 111/57 L 08/15/19 22:15 72 131/67 08/15/19 22:00 72 20 131/67 08/15/19 21:45 68 142/85 H 08/15/19 21:30 67 20 131/83 08/15/19 21:15 67 20 131/83 08/15/19 21:00 68 20 128/80 08/15/19 20:59 68 128/80 08/15/19 20:55 69 121/76 08/15/19 20:45 77 20 135/79 08/15/19 20:31 77 135/79 08/15/19 20:30 98.1 F 77 20 135/79 08/15/19 19:41 74 133/73 08/15/19 19:37 74 133/73 08/15/19 19:36 97.5 F L 20
[2019-08-17] MEDS: IBUPROFEN 600 MG TAB PO PRN ×2 (03:58→08:20)
--- NOTE | 2019-08-17 06:16 | Obstetrical Progress Note ---
Date of Service August 17, 2019 Assessment & Plan (1) Encounter for supervision of normal in multigravida: - patient desires d/c - instruction given - f/u in 6 weeks Subjective Ambulation: ambulating normally Voiding: no voiding problems Feeding Type:: breast feeding Physical Exam Constitutional WD/WN, vitals as above Gastrointestinal (Abdomen) Fundus firm below umbilicus Musculoskeletal No deep calf tenderness Results & Data Vital Signs (Past 12 Hours) Vital Signs Temp Pulse Resp BP Pulse Ox 08/16/19 23:35 97.9 F 65 18 100/64 08/16/19 19:45 97.9 F 66 20 104/66 96
[2019-08-17 07:28] VITALS: BP 114/80; PULSE 64; TEMP 98.1; O2SAT 98
[2019-08-17] MEDS: DOCUSATE SODIUM 100 MG CAP PO SCH (08:20)
== END 2019-08-17 10:30 | disposition home or self-care (01) | DRG 807 ==
LOC: 4S1 19:27 → OPB 19:27 → 4S1 19:59 → 4S2 23:02

== ENCOUNTER 2024-06-01 03:49 | Inpatient (IN) ==
[2024-06-01 04:53] LABS: Hematocrit (blood only) 35.8 % (37.0-47.0); Hemoglobin 12.2 g/dl (12.0-16.0); Mean Corpuscular Hemoglobin 32.6 pg (25.0-34.0); Mean Corpuscular Hgb Conc 34.1 g/dL (32.0-36.0); Mean Corpuscular Volume 95.7 fL (80.0-100.0); Mean Platelet Volume 11.3 fL (9.4-12.4); Platelet Count 149 K/uL (130-400); RDW Coefficient of Variation 13.3 % (11.5-14.5); RDW Standard Deviation 47.1 fL (36.4-46.3); Red Blood Count 3.74 M/uL (4.20-5.40); White Blood Count 12.41 K/ul (4.8-10.8)
[2024-06-01] MEDS ORDERED: ePHEDrine sulfate 50 MG/ML AMP ONE (07:33)
--- NOTE | 2024-06-01 07:35 | Labor Progress Brief Note ---
Date of Service June 01, 2024 Subjective Increasing cramps over the last four hours. Mucus plug continues to shed but no lakshmi red bleeding. No LOF. Assessment & Plan (1) Normal labor and delivery: Plan: Presented with "vaginal bleeding and decreased FM," admitted with bloody show appropriate for 4cm dilation and a reactive NST. Over the next few hours has made change to 6cm so in Labor. Was for IOL today, but now will get epidural and then after comfortable can AROM and likely will be all that's needed. Admission and Anticipated Discharge Date Admission Date: June 01, 2024 Physical Exam Genitourinary: /-2 Intact membranes [place] Q3-4 Results & Data Vital Signs (Past 12 Hours) Vital Signs Temp Pulse Resp BP 06/01/24 07:01 98.2 F 71 20 133/88 06/01/24 04:35 98.4 F 20 06/01/24 04:06 85 128/85 Coding Level of Care Code None Diagnoses Normal labor and delivery O80
[2024-06-01] MEDS: LACTATED RINGER'S 1,000 ML IV PRN (07:46)
[2024-06-01] MEDS: fentANYL 2 MCG/ML BUPIVacaine 0.125%-NSS 100ML BAG ONE (08:07)
[2024-06-01] MEDS: LIDOCAINE 2%/EPINEPHRINE 1:200,000 20 ML PF ONE (08:13)
--- NOTE | 2024-06-01 08:19 | Anesthesiology Consultation ---
Date of Service June 01, 2024 Assessment & Plan Chart Review Chart Review: Acceptable Risk for Labor Epidural Consults Requested none History Height/Weight Height: 5 ft 7 in Weight: 92.533 kg Allergies Allergy/AdvReac Type Severity Reaction Status Date / Time bee venom protein (honey bee) Allergy Unknown SWELLING Verified 05/31/24 09:53 No Known Drug Allergies Allergy Verified 05/31/24 09:53 Medications Home Medications Medication Instructions Recorded Confirmed Last Taken epinephrine 0.3 mg/0.3 mL subcut .USE DIRECTED. 03/29/19 05/31/24 Unknown injection, auto-injector 21-iron fu-folic acid PO 11/04/23 05/31/24 Unknown [ Complete] aspirin 81 mg tablet,delayed 81 mg PO DAILY 01/26/24 06/01/24 Unknown release (Adult Aspirin Regimen) Active Medications Generic Name Dose Route Start Last Admin Trade Name Freq PRN Reason Stop Dose Admin Lactated Ringer's 1,000 mls @ 125 mls/hr 06/01/24 04:22 06/01/24 07:46 Lr IV 06/03/24 04:21 999 mls/hr .Q8H PRN Administration L&D Protocol Protocol Past Medical History Medical History (Updated 06/01/24 @ 07:34 by Simran Ibanez MD) History of chicken pox Past Family History Family History Grandfather (Maternal) Coronary heart disease Hypertension Myocardial infarction Father Hypertension Dyslipidemia Mother Hypertension Dyslipidemia Grandmother (Maternal) Hypertension Grandfather (Paternal) Hypertension Uncle Colorectal cancer Prostate cancer Denies family history of Ovarian cancer Breast cancer Past Surgical History Surgical History Status post Mohs surgery History of oral surgery Social History Smoking Status: Never smoker Do You Dip or Chew Tobacco: No Hx Alcohol Use: No Hx Substance Use: No substance use type: does not use Physical Exam Vital Signs Last Vital Signs Temp 36.8 C 06/01/24 07:01 Pulse 78 06/01/24 08:15 Resp 20 06/01/24 07:01 BP 112/67 06/01/24 08:15 Pulse Ox 100 06/01/24 08:15 Testing Laboratory Results 06/01/24 04:34
[2024-06-01] MEDS ORDERED: ePHEDrine sulfate 50 MG/ML AMP IV PRN (08:22)
[2024-06-01] MEDS ORDERED: ROPIVACAINE 0.5% PF 5 MG/ML 20 ML VIAL EPI PRN (08:22)
[2024-06-01] MEDS ORDERED: NALOXONE HCL 1 MG in SODIUM CHLORIDE 0.9% 1,000 ML IV PRN (08:22)
[2024-06-01] MEDS ORDERED: SODIUM CHLORIDE 0.9% PF INJ 10 ML VIAL EPI PRN (08:22)
[2024-06-01] MEDS ORDERED: fentaNYL citrate PF 100 MCG/2 ML VIAL EPI STA (08:22)
[2024-06-01] MEDS ORDERED: diphenhydrAMINE 50 MG/ML VIAL IV PRN (08:22)
[2024-06-01] MEDS ORDERED: LIDOCAINE 2%/EPINEPHRINE 1:200,000 20 ML PF EPI STA (08:22)
[2024-06-01] MEDS ORDERED: LIDOCAINE 2% MPF LOCAL 5 ML VIAL EPI PRN (08:22)
[2024-06-01] MEDS ORDERED: NALOXONE HCL 0.4 MG/1 ML VIAL/CARP IV PRN (08:22)
[2024-06-01] MEDS ORDERED: fentaNYL citrate PF 100 MCG/2 ML VIAL EPI PRN (08:22)
[2024-06-01] MEDS ORDERED: SODIUM CHLORIDE 0.9% PF INJ 10 ML VIAL EPI STA (08:22)
[2024-06-01] MEDS ORDERED: NALBUPHINE HCL INJ 10 MG/ML AMP IV PRN (08:22)
[2024-06-01] MEDS ORDERED: BUPIVACAINE 0.25% PF 30 ML VIAL EPI PRN (08:22)
[2024-06-01] MEDS ORDERED: BUPIVACAINE 0.25% PF 30 ML VIAL EPI STA (08:22)
[2024-06-01] MEDS ORDERED: fentANYL 2 MCG/ML BUPIVacaine 0.125%-NSS 100ML BAG EPI PRN (08:22)
[2024-06-01] MEDS: BUPIVACAINE 0.25% PF 30 ML VIAL ONE (09:25)
[2024-06-01] MEDS: fentaNYL citrate PF 100 MCG/2 ML VIAL ONE (09:26)
[2024-06-01] MEDS: SODIUM CHLORIDE 0.9% PF INJ 10 ML VIAL ONE (09:26)
[2024-06-01] MEDS ORDERED: Nursing to Pharmacy Communication SCH (09:45)
[2024-06-01] MEDS: OXYTOCIN 30 UNITS/NSS 30 UNITS/500 ML BAG IV PRN (10:26)
[2024-06-01] MEDS: LIDOCAINE 1% LOCAL 20 ML VIAL INFIL PRN (10:29)
[2024-06-01] MEDS ORDERED: bisacodyL 10 MG SUPP PR PRN (11:05)
[2024-06-01] MEDS ORDERED: OXYTOCIN 30 UNITS/NSS 30 UNITS/500 ML BAG IV PRN (11:05)
[2024-06-01] MEDS ORDERED: oxyCODONE/ACETAMINOPHEN 5mg/325mg TAB PO PRN (11:05)
[2024-06-01] MEDS ORDERED: HYDROCORTISONE ACETATE 25 MG SUPP PR PRN (11:05)
[2024-06-01] MEDS ORDERED: DIPHTHER/TETAN/PERTUS Vaccine (Tdap, Adol/Adult) 0.5mL IM ONE (11:05)
--- NOTE | 2024-06-01 11:07 | Delivery Summary ---
Vaginal Delivery Summary Date of Service June 01, 2024 Vaginal Delivery Summary and 1st Degree LAC (vaginal) Patient is a 34-year-old 5 para 2-0-2-2 female EDC of 05/30/2024 who presented in active labor at 40 2/7 weeks on the day of her induction for post term . Membranes ruptured for clear fluid. She received effective epidural analgesia and progressed to full dilation with the urge to push. The head was delivered with maternal effort. The shoulders were then delivered without maternal effort over intact perineum for a viable male . The rest of the delivered easily and he was placed on the mother's abdomen for further attention and drying. After 1 minute, the cord was clamped and cut. After obtaining cord blood, the placenta was expressed intact with a three- vessel cord. bleeding was controlled with dilute Pitocin and fundal massage. A first-degree vaginal laceration was repaired with 3-0 chromic in the usual fashion. 1% lidocaine was used to anesthetize the area prior to the repair. QBL was 50 cc. Mother and infant were doing well after delivery. [facility] Vaginal Delivery Charge Delivery Type Details: and 1st Degree LAC (vaginal)
[2024-06-01] MEDS: IBUPROFEN 600 MG TAB PO PRN (13:42)
[2024-06-01] MEDS: BENZOCAINE 20% SPRY 85 APPLN/85 GM CAN EXT PRN (13:50)
[2024-06-01] MEDS: ACETAMINOPHEN 325 MG TAB PO PRN (19:54)
[2024-06-01 22:45] VITALS: O2SAT 96
[2024-06-02 06:28] LABS: Hematocrit (blood only) 33.1 % (37.0-47.0); Hemoglobin 11.1 g/dl (12.0-16.0); Mean Corpuscular Hgb Conc 33.5 g/dL (32.0-36.0); Mean Corpuscular Volume 98.5 fL (80.0-100.0); Mean Platelet Volume 11.4 fL (9.4-12.4); Platelet Count 127 K/uL (130-400); RDW Coefficient of Variation 13.4 % (11.5-14.5); RDW Standard Deviation 47.9 fL (36.4-46.3); Red Blood Count 3.36 M/uL (4.20-5.40); White Blood Count 14.85 K/ul (4.8-10.8)
--- NOTE | 2024-06-02 06:42 | Obstetrical Progress Note ---
Date of Service June 02, 2024 Assessment & Plan (1) Encounter for assessment: Plan: Patient is PPD 1 s/p and doing well - Eating well, voiding well, ambulating well - vitals reviewed and within normal limits - pain well controlled with analgesics - OOB, ambulation, diet progression as tolerated - Blood type: O+, GBS neg, rubella immune - Plan to discharge today - After discharge, 6 week follow up with OB Admission and Anticipated Discharge Date Admission Date: June 01, 2024 Supervising Physician Co-Signing Physician Notes Resident Physician Supervision Note: I interviewed and examined the patient. Discussed with Dr. Yin and agree with findings and plan as documented in the note. Any exceptions or clarifications are listed here: [None] Documented By: Lary Swain MD, FACOG Subjective 34 yo post- day 1 s/p Ambulation: ambulating normally Voiding: no voiding problems Passing Gas:: Yes Diet Tolerance:: regular diet Lochia:: Small Feeding Type:: bottle feeding and trying to breast feed Current Pain Level: 3/10 Resting comfortably this AM in NAD. Denies [place], CP, SOB, N/V/D, LE pain/swelling. Physical Exam Physical Exam: General: patient resting comfortably, NAD, non-toxic in appearance, answers questions appropriately. Skin: warm, dry, intact HEENT: NC/AT, anicteric sclera, conjunctiva without injection, moist mucus membranes. Heart: +S1/S2, regular, no m/r/g Lungs: equal air entry bilaterally, no rales/rhonchi/wheezes Abd: +BS, soft, NT/ND, uterine fundus firm at umbilicus Ext: warm, no clubbing/cyanosis or edema, Laurence's neg. Neuro: nonfocal, speech intact, no facial droop, moving all extremities. Results & Data Vital Signs (Past 12 Hours) Vital Signs Temp Pulse Resp BP Pulse Ox O2 Del Method 06/02/24 02:55 36.3 C L 69 16 117/80 96 Room Air 06/01/24 22:40 36.9 C 69 16 107/74 96 Room Air 06/01/24 20:00 37.2 C 74 16 111/76 98 Room Air Resident Activity Tracking Resident Involvement: Resident Care Provided Care Provided: OB Delivery (1) Encounter for assessment visit type: exam and care immediately after delivery Qualified Code(s): Z39.0 - Encounter for care and examination of mother immediately after delivery
[2024-06-02] MEDS: PRENATAL VITAMIN 1 TAB PO SCH (08:58)
[2024-06-02] MEDS: DOCUSATE SODIUM 100 MG CAP PO SCH (08:58)
[2024-06-02 10:08] VITALS: BP 112/71; PULSE 75; RESP 18; TEMP 98.2
[2024-06-02] MEDS ORDERED: bisacodyL 5 MG TABEC PO SCH (20:00)
== END 2024-06-02 13:04 | disposition home or self-care (01) | DRG 807 ==
LOC: 4S1 03:49 → 4E2 13:10